=== PATIENT | male | born 1955 | race Caucasian/White ===

== ENCOUNTER → 2019-07-07 08:50 | Outpatient (CLI) | payer OTHER ==
[2014-06-24 06:45] VITALS: BMI 18.8
[~2019-07-07 08:50] MED LIST: ALEVE220 MG PO; HYDROCODONE-APA1 TAB PO
== END | disposition home or self-care (01) ==
LOC: D.US 08:50
PROVIDERS: ATTEND Surgery
DX: R10.32 Left lower quadrant pain (principal)